=== PATIENT | female | born 1970 | race Caucasian/White ===

== ENCOUNTER 2017-09-15 20:30 | Emergency (ER) | payer BC ==
[2017-09-15 23:12] VITALS: BP 120/78
== END 2017-09-15 23:12 | disposition home or self-care (01) ==
LOC: ED 20:30
DX: F43.20 Adjustment disorder, unspecified (principal); J45.909 Unspecified asthma, uncomplicated; G56.00 Carpal tunnel syndrome, unspecified upper limb; Z88.0 Allergy status to penicillin
CPT/HCPCS: J1885